=== PATIENT | male | born 1940 | race Hispanic/Latino ===

== ENCOUNTER 2017-01-15 06:40 | Outpatient (CLI) | payer MEDICARE ==
[2017-01-15 07:05] LABS: #Basophils 0.1 thou/uL (0.0-0.2); #Eosinphils 0.3 thou/uL (0.0-0.7); #Lymphocytes 0.8 thou/uL (1.20-3.40); #Monocytes 0.4 thou/uL (0.11-0.59); #Neutrophils 2.3 thou/uL (1.40-6.50); %Basophils 1.9 % (0.0-1.0); %Eosinophils 7.5 % (0.0-10.0); %Lymphocytes 20.1 % (21.0-51.0); %Monocytes 10.4 % (0.0-10.0); %Neutrophils 60.2 % (42.0-75.0); Mean Corpuscular HGB CONC 31.2 g/dL (32.0-36.0); Mean Corpuscular Hemoglobin 25.3 pg (27.0-31.0); Mean Corpuscular Volume 80.9 fl (80.0-94.0); Mean Platelet Volume 9.4 fL (7.4-10.4); Platelet Count 179 thou/uL (130-400); Red Blood Cell (RBC) Count 3.97 mill/uL (4.70-6.10); White Blood Cell (WBC) Count 3.8 thou/uL (4.8-10.8)
[2017-01-15 07:11] LABS: Bilirubin Negative (Negative); Blood, Urine Negative (Negative); Clarity Clear (Clear); Glucose, Urine (Dipstick) Negative (Negative); Leukocyte Negative (Negative); Nitrite Negative (Negative); Protein, Urine (Dipstick) 30 mg/dL (Neg-Trace); Specific Gravity, Urine 1.015 (1.005-1.030); Urobilinogen 0.2 mg/dL (0.2-1.0)
[2017-01-15 07:16] LABS: Hemoglobin A1c 6.5 % (4.0-6.0)
[2017-01-15 07:28] LABS: ALT (SGPT) 9 U/L (8-55); AST (SGOT) 13 U/L (5-34); Alkaline Phosphatase 71 U/L (40-150); Anion Gap 12 mmol/L (10-20); BUN (Urea Nitrogen) 32 mg/dL (8.4-25.7); Bilirubin, Total 0.3 mg/dL (0.2-1.2); Calc. Creatinine Clearance 0 mL/min (70-130); Calcium 8.7 mg/dL (7.8-10.44); Carbon Dioxide 24 mmol/L (23-31); Cardiac Risk 4.9 (Less than 4.5); Chloride 109 mmol/L (98-107); Cholesterol 148 mg/dl (< 200 Desired); Estimated GFR-MDRD 46; Globulin 2.7 g/dL (2.4-3.5); Glucose 101 mg/dL (83-110); HDL Cholesterol 30 mg/dL (>60 Neg Risk); LDL Cholesterol, Calculated 78 mg/dL; Potassium 4.3 mmol/L (3.5-5.1); Protein, Total 6.7 g/dL (5.8-8.1); Sodium 141 mmol/L (136-145); Triglycerides 198 mg/dL (Less than 150); Uric Acid 4.1 mg/dL (3.5-7.2)
[2017-01-15 07:31] LABS: Bacteria/HPF Rare-Few HPF (None Seen); Other Microscopic Description NO; RBC/HPF None Seen HPF (0-3); Squamous Epithelial 0-3 HPF (0-3); WBC/HPF 0-3 HPF (0-3)
[2017-01-15 07:53] LABS: Thyroid Stimulating Hormone 4.6014 uIU/mL (0.35-4.94)
[2017-01-15 18:45] LABS: Ferritin 91.01 ng/mL (22-322)
[2017-01-15 18:49] LABS: Creatinine, Urine 32.58 mg/dL (63-166); Microalbumin Urine 16.5 mg/dL (0.5-50.0); Microalbumin/Creat Ratio 506.4 mg/g (Less than 30)
[2017-01-15 21:13] LABS: Iron 72 ug/dL (65-175); Iron Binding Capacity, Total 254 mcg/dL (261-462)
== END 2017-01-15 06:41 | disposition home or self-care (01) ==
LOC: NAV LAB 06:40
PROVIDERS: ATTEND Family Medicine
DX: E11.9 Type 2 diabetes mellitus without complications (principal); E79.0 Hyperuricemia without signs of inflammatory arthritis and tophaceous disease; I10 Essential (primary) hypertension; E29.1 Testicular hypofunction
CPT/HCPCS: 80053; 80061; 81003; 81015; 82043; 82728; 83036; 83540; 83550; 84403; 84443; 84550; 85025

== ENCOUNTER 2022-01-26 01:04 | Emergency (ER) | payer MEDICARE ==
[2022-01-26 02:38] LABS: ALT (SGPT) 32 U/L (8-55); AST (SGOT) 49 U/L (5-34); Albumin 3.8 g/dL (3.4-4.8); Alkaline Phosphatase 70 U/L (40-110); Anion Gap 22 mmol/L (10-20); BUN (Urea Nitrogen) 64 mg/dL (8.4-25.7); Bilirubin, Total 0.9 mg/dL (0.2-1.2); Calc. Creatinine Clearance 0 mL/min (70-130); Calcium 8.6 mg/dL (7.8-10.44); Carbon Dioxide 24 mmol/L (23-31); Chloride 89 mmol/L (98-107); Estimated GFR 5; Globulin 2.9 g/dL (2.4-3.5); Glucose 170 mg/dL (83-110); Magnesium 1.9 mg/dL (1.6-2.6); Potassium 5.6 mmol/L (3.5-5.1); Protein, Total 6.7 g/dL (5.8-8.1); Sodium 129 mmol/L (136-145)
[2022-01-26 02:53] LABS: SARS-CoV-2 NAA Rapid Test Not Detected (NotDetected)
[2022-01-26] MEDS ORDERED: Cefepime 1 GM VIAL ONE (04:06)
[2022-01-26] MEDS ORDERED: Sodium Chloride 0.9% 100 ML ONE (04:08)
[2022-01-26 04:23] LABS: Red Blood Cell (RBC) Count 3.94 mill/uL (4.70-6.10); White Blood Cell (WBC) Count 5.1 thou/uL (4.8-10.8)
[2022-01-26 04:24] LABS: Hemoglobin 10.8 g/dL (14.0-18.0); Mean Corpuscular HGB CONC 29.5 g/dL (32.0-36.0); Mean Corpuscular Hemoglobin 27.3 pg (27.0-31.0); Mean Corpuscular Volume 92.5 fL (78.0-98.0)
[2022-01-26 04:25] LABS: RBC Distribution Width 14.9 % (11.5-14.5)
[2022-01-26 04:29] LABS: %Basophils 0.6 % (0.0-1.0); %Neutrophils 92.4 % (42.0-75.0); Mean Platelet Volume 10.2 fL (7.4-10.4)
[2022-01-26 04:30] LABS: #Lymphocytes 0.2 thou/uL (1.20-3.40); #Monocytes 0.2 thou/uL (0.11-0.59); #Neutrophils 4.7 thou/uL (1.40-6.50)
[2022-01-26 04:40] LABS: Platelet Count 83 thou/uL (130-400)
[2022-01-26] MEDS ORDERED: Acetaminophen 325 MG TAB ONE (04:42)
[2022-01-26] MEDS ORDERED: Vancomycin HCl 750 MG VIAL ONE (05:40)
[2022-01-26] MEDS ORDERED: Sodium Chloride 0.9% 500 ML ONE (05:40)
[2022-01-26 06:55] LABS: Anion Gap 20 mmol/L (10-20); BUN (Urea Nitrogen) 65 mg/dL (8.4-25.7); Calc. Creatinine Clearance 0 mL/min (70-130); Calcium 8.1 mg/dL (7.8-10.44); Carbon Dioxide 22 mmol/L (23-31); Chloride 95 mmol/L (98-107); Estimated GFR 5; Glucose 127 mg/dL (83-110); Potassium 5.3 mmol/L (3.5-5.1); Sodium 132 mmol/L (136-145)
[2022-01-26 10:10] LABS: Bilirubin Negative (Negative); Blood, Urine Trace (Negative); Clarity Clear (Clear); Glucose, Urine (Dipstick) Negative (Negative); Ketone, Urine Negative (Negative); Leukocyte Negative (Negative); Nitrite Negative (Negative); Protein, Urine (Dipstick) > or equal to 300 mg/dL (Neg-Trace); pH, Urine 7.5 (5.0-9.0)
[2022-01-26 10:23] LABS: RBC/HPF 0-3 HPF (0-3); Squamous Epithelial 0-3 HPF (0-3); Transitional Epithelial 0-3 HPF (None Seen)
[2022-01-26 10:24] LABS: Bacteria/HPF 1+ HPF (None Seen)
== END 2022-01-26 10:30 | disposition short-term general hospital (02) ==
LOC: NAV ERS 01:04
DX: E87.5 Hyperkalemia (principal); N18.9 Chronic kidney disease, unspecified; D63.1 Anemia in chronic kidney disease; R50.9 Fever, unspecified; Z20.822 Contact with and (suspected) exposure to COVID-19
CPT/HCPCS: 36415; 71045; 80053; 81003; 81015; 83605; 83735; 84145; 85025; 87040; 87077; 87081; 87086; 87149; 87186; 87430; 87804; 94760; 96361; 96365; 96366; 96367; J0692; J3370; J3490; J7030; U0002

== ENCOUNTER 2023-12-23 14:03 | Outpatient (CLI) | payer MEDICARE, OTHER | END 2023-12-23 14:04 | disposition home or self-care (01) | LOC: NAV RAD 14:03 | PROVIDERS: ATTEND Nurse Practitioner Family | DX: R09.89 Other specified symptoms and signs involving the circulatory and respiratory systems (principal) | CPT/HCPCS: 71046 ==